=== PATIENT | male | born 1985 | race Caucasian/White ===

== ENCOUNTER 2023-11-29 18:41 | Observation (INO) | payer OTHER ==
--- NOTE | 2023-11-29 19:06 | ED ---
General Adult HPI - General Source: patient, family, RN notes reviewed <Malissa Rain - Last Filed: 11/29/23 19:04> <Don Acuña - Last Filed: 11/30/23 04:48> <Leonel Toro - Last Filed: 11/30/23 07:32> - General Stated complaint: headache weakness Time Seen by Provider: 11/29/23 19:04 - History of Present Illness Initial comments: Patient is a 37-year-old male presented to the ER with chief complaint of headache and weakness. Patient states for the past 2 to 3 days he has been having a headach and has just intensified. He also endorses nausea denies vomiting. Patient also states "he does not feel well". He states he feels extremely weak shaky and sweaty. Denies any neck pain, chest pain, shortness of breath. (Malissa Rain) 37-year-old female presenting to the ED with a chief complaint of headache. Patient states 4 days ago onset of headache. States that it is on the right side of his head radiates towards the middle. Patient also notes some associated nausea and vomiting with this intermittent blurred vision. No chest pain shortness of breath. No fever or chills. Patient has had no recent neck manipulations. Patient reports that this is "the worst headache of his life". No other complaints at this time. (Don Acuña) - Related Data Allergies Allergy/AdvReac Type Severity Reaction Status Date / Time Sulfa (Sulfonamide Allergy Rash/Hives Verified 11/29/23 19:34 Antibiotics) Review of Systems ROS Other: All systems not noted in ROS Statement are negative. <Malissa Rain - Last Filed: 11/29/23 19:04> ROS Other: All systems not noted in ROS Statement are negative. <Don Acuña - Last Filed: 11/30/23 04:48> ROS Other: All systems not noted in ROS Statement are negative. <Leonel Toro - Last Filed: 11/30/23 07:32> ROS Statement: Those systems with pertinent positive or pertinent negative responses have been documented in the HPI. General Exam <Malissa Rain - Last Filed: 11/29/23 19:04> General appearance: alert, in no apparent distress Eye exam: Present: normal appearance Neck exam: Present: normal inspection Respiratory exam: Present: normal lung sounds bilaterally Cardiovascular Exam: Present: regular rate, normal rhythm GI/Abdominal exam: Present: soft Extremities exam: Present: normal inspection Neurological exam: Present: alert, oriented X3, CN II-XII intact, other ([id number], [id number]-[id number], rapid alternating hand movements intact.) Skin exam: Present: warm, dry <Don Acuña - Last Filed: 11/30/23 04:48> - General Exam Comments Initial Comments: Visual Physical Exam Vital signs reviewed General: Well-appearing, nontoxic, no acute distress. Head: Normocephalic, atraumatic Eyes: PERRLA, EOMI ENT: Airway patent Chest: Nonlabored breathing Skin: No visual rash, normal skin tone, diaphoretic and mildly pale Neuro: Alert and oriented 3 Musculoskeletal: No gross abnormalities (Malissa Rain) Course <Don Acuña - Last Filed: 11/30/23 04:48> Vital Signs 11/29/23 11/29/23 11/30/23 19:29 20:56 00:37 Temperature 98.4 F 99.0 F Pulse Rate 82 96 76 Respiratory 18 16 16 Rate Blood Pressure 185/98 181/108 149/82 O2 Sat by Pulse 99 97 97 Oximetry 11/30/23 11/30/23 03:04 06:12 Temperature Pulse Rate 95 95 Respiratory 16 20 Rate Blood Pressure 174/100 159/84 O2 Sat by Pulse 96 97 Oximetry - Reevaluation(s) Reevaluation #1: At this time patient is still complaining of significant pain after multiple analgesics. Therefore CTA head and neck ordered. 11/30/23 02:28 (Don Acuña) Medical Decision Making <Malissa Rain - Last Filed: 11/29/23 19:04> - Lab Data Result diagrams: 11/29/23 20:59 11/29/23 20:59 <Don Acuña - Last Filed: 11/30/23 04:48> - Lab Data Result diagrams: 11/29/23 20:59 11/29/23 20:59 <Leonel Toro - Last Filed: 11/30/23 07:32> - Medical Decision Making I performed the quick note portion of this chart. Electronically signed by Malissa Rain PA-C (Malissa Rain) Was pt. sent in by a medical professional or institution ([employer] [facility], [employer], urgent care, hospital, or half-way...) When possible be specific @ -No Did you speak to anyone other than the patient for history (EMS, parent, family, police, friend...)? What history was obtained from this source @ -No Did you review nursing and triage notes (agree or disagree)? Why? @ -I reviewed and agree with nursing and triage notes Were old charts reviewed (outside hosp., previous admission, EMS record, old EKG, old radiological studies, urgent care reports/EKG's, half-way records)? Report findings @ -No old charts were reviewed Differential Diagnosis (chest pain, altered mental status, abdominal pain women, abdominal pain men, vaginal bleeding, weakness, fever, dyspnea, syncope, headache, dizziness, GI bleed, back pain, seizure, CVA, palpatations, mental health, musculoskeletal)? @ -Differential Headache: Migraine, tension, cluster, carbon monoxide, central venous thrombosis, pension karma temporal arteritis, acute closure glaucoma, intercranial hemorrhage, mastoiditis, sinusitis, head injury, this is not meant to be an all-inclusive list. EKG interpreted by me (3pts min.). @ -EKG interpreted by me shows a normal sinus rhythm at [address] and T wave changes. MI 130, QRS 92, QT/QTc 396/411. X-rays interpreted by me (1pt min.). @ -None done CT interpreted by me (1pt min.). @ -CT brain interpreted by me showing no evidence of acute finding. U/S interpreted by me (1pt. min.). @ -None done What testing was considered but not performed or refused? (CT, X-rays, U/S, labs )? Why? @ -None What meds were considered but not given or refused? Why? @ -None Did you discuss the management of the patient with other professionals (professionals i.e. [employer] [facility], [employer], lab, RT, psych nurse, group social worker, vehicle safety inspector, teacher, founder and chief executive officer, community case manager)? Give summary @ -No Was smoking cessation discussed for >3mins.? @ -No Was critical care preformed (if so, how long)? @ -No Were there social determinants of health that impacted care today? How? (Homelessness, low income, unemployed, alcoholism, drug addiction, transportation, low edu. Level, literacy, decrease access to med. care, care home, rehab)? @ -No Was there de-escalation of care discussed even if they declined (Discuss DNR or withdrawal of care, Hospice)? DNR status @ -No What co-morbidities impacted this encounter? (DM, HTN, Smoking, COPD, CAD, Cancer, CVA, ARF, Chemo, Hep., AIDS, mental health diagnosis, sleep apnea, morbid obesity)? @ -None Was patient admitted / discharged? Hospital course, mention meds given and route, prescriptions, significant lab abnormalities, going to OR and other pertinent info. @ -Pending 37-year-old male presenting to the ED with a history of headache for the past few days. Patient reports no history of headaches. Therefore patient had complete workup including laboratory studies and CT brain which were largely unremarkable. After the aforementioned studies and multiple doses of analgesia patient was still complaining of intractable headache therefore CT angio head and neck was performed and at this time study is pending. Case signed out to my attending physician Dr. Toro for further disposition. (Don Acuña) Patient signed out to me pending results of workup. Briefly, presents with intr actable headache for the last few days. Is received multiple doses of pain medications here. Blood work is unremarkable. ESR still pending. CT imaging so far has been unremarkable. I did interpret the CT angiogram which was pending and revealed no obvious acute intracranial process. On reevaluation, vital signs are improved with blood pressure now systolics in the 150s however patient is still complaining of headache. I did offer observation admission with neurology evaluation he was in agreement this plan. He has no other symptoms at this time other than the headache. States he does get some mild relief but no significant relief. I spoke with the admitting team, JANE Akbar of [facility] who accepted the admission. Diagnosis/symptom? @ -Intractable headache Acute, or Chronic, or Acute on Chronic? @ -Acute Uncomplicated (without systemic symptoms) or Complicated (systemic symptoms)? @ -Complicated Side effects of treatment? @ -None Exacerbation, Progression, or Severe Exacerbation] @ -No Poses a threat to life or bodily function? @ -Yes (Leonel Toro) - Lab Data Lab Results 11/29/23 11/29/23 11/29/23 Range/Units 20:59 20:59 20:59 WBC 10.2 (3.8-10.6) k/uL RBC 5.00 (4.30-5.90) m/uL Hgb 16.2 (13.0-17.5) gm/dL Hct 47.7 (39.0-53.0) % MCV 95.3 (80.0-100.0) fL MCH 32.3 (25.0-35.0) pg MCHC 33.9 (31.0-37.0) g/dL RDW 12.5 (11.5-15.5) % Plt Count 283 (150-450) k/uL MPV 7.7 Sodium 140 (137-145) mmol/L Potassium 4.0 (3.5-5.1) mmol/L Chloride 105 (98-107) mmol/L Carbon Dioxide 27 (22-30) mmol/L Anion Gap 8 mmol/L BUN 16 (9-20) mg/dL Creatinine 0.87 (0.66-1.25) mg/dL Est GFR (CKD-EPI)AfAm >90 (>60 ml/min/1.73 sqM) Est GFR (CKD-EPI)NonAf >90 (>60 ml/min/1.73 sqM) Glucose 81 (74-99) mg/dL Calcium 10.3 H (8.4-10.2) mg/dL Total Bilirubin 0.7 (0.2-1.3) mg/dL AST 31 (17-59) U/L ALT 50 H (4-49) U/L Alkaline Phosphatase 83 (38-126) U/L C-Reactive Protein <0.5 (<1.0) mg/dL Total Protein 8.2 (6.3-8.2) g/dL Albumin 5.2 H (3.5-5.0) g/dL Influenza Type A (PCR) Not Detected (Not Detectd) Influenza Type B (PCR) Not Detected (Not Detectd) RSV (PCR) Not Detected (Not Detectd) SARS-CoV-2 (PCR) Not Detected (Not Detectd) Disposition <Stariha,Malissa - Last Filed: 11/29/23 19:04> Is patient prescribed a controlled substance at d/c from ED?: No <Don Acuña - Last Filed: 11/30/23 04:48> Time of Disposition: 07:00 <Leonel Toro - Last Filed: 11/30/23 07:32> Clinical Impression: Headache Disposition: ADMITTED IP TO THIS HOSP Condition: Stable Additional Instructions: Please return to the Emergency Department if symptoms worsen or any other co ncerns. Please follow-up with your PCP. Referrals: None,Stated [Primary Care Provider] - 1-2 days
--- NOTE | 2023-11-29 20:57 | CT ---
EXAMINATION TYPE: CT brain wo con CT DLP: 1136.4 mGycm, Automated exposure control for dose reduction was used. DATE OF EXAM: 11/29/2023 8:20 PM COMPARISON: None. CLINICAL INDICATION:Male, 37 years old with history of headache, headache x 3 days. TECHNIQUE: Brain: Axial CT images of the brain were obtained with coronal and sagittal reformats created and rev iewed. Contrast used: None. Oral contrast used: None. FINDINGS: Brain: Extra-axial spaces: No abnormal extra-axial fluid collections. Ventricular system: Within normal limits Cerebral parenchyma: No acute intraparenchymal hemorrhage or mass effect. The bautista-white junction is well differentiated. Cerebellum: Unremarkable. Mass effect: No evidence of midline shift. Intracranial vasculature: unremarkable Soft tissues: Normal. Calvarium/osseous structures: No depressed skull fracture. Paranasal sinuses and mastoid air cells: Mild scattered paranasal sinus disease. Visualized orbits: Orbital contents are intact. IMPRESSION: No acute intracranial process.
[2023-11-29 22:07] LABS: HCT 47.7 % (39.0-53.0); HGB 16.2 gm/dL (13.0-17.5); MCH 32.3 pg (25.0-35.0); MCHC 33.9 g/dL (31.0-37.0); MCV 95.3 fL (80.0-100.0); Mean Platelet Volume 7.7; Platelet Count 283 k/uL (150-450); RDW 12.5 % (11.5-15.5); WBC 10.2 k/uL (3.8-10.6)
[2023-11-29 23:50] LABS: ALT 50 U/L (4-49); AST 31 U/L (17-59); African American GFR (CKD) >90 (>60 ml/min/1.73 sqM); Albumin 5.2 g/dL (3.5-5.0); Alkaline Phosphatase 83 U/L (38-126); Anion Gap 8 mmol/L; Blood Urea Nitrogen 16 mg/dL (9-20); Calcium 10.3 mg/dL (8.4-10.2); Carbon Dioxide 27 mmol/L (22-30); Chloride 105 mmol/L (98-107); Glucose 81 mg/dL (74-99); Non-African American GFR(CKD) >90 (>60 ml/min/1.73 sqM); Sodium 140 mmol/L (137-145); Total Bilirubin 0.7 mg/dL (0.2-1.3); Total Protein 8.2 g/dL (6.3-8.2)
[2023-11-30 00:04] LABS: C Reactive Protein <0.5 mg/dL (<1.0)
[2023-11-30] MEDS: diphenhydrAMINE 50 MG/ML 1 ML VIAL IVP STA (00:16)
[2023-11-30] MEDS: KETOROLAC 15 MG/ML 1 ML VIAL IVP STA (00:16)
[2023-11-30] MEDS: ONDANSETRON 4 MG/2 ML VIAL IVP STA (00:17)
[2023-11-30] MEDS: SODIUM CHLORIDE 0.9% 1,000 ML IV STA (00:18)
[2023-11-30] MEDS: MORPHINE SULFATE 4 MG/ML SYRINGE IVP STA (01:14)
[2023-11-30] MEDS: DEXAMETHASONE SOD PHOSPHATE 10 MG/ML 1 ML VIAL IVP STA (01:46)
[2023-11-30] MEDS: MAGNESIUM SULFATE-D5W PMX 1 GM in DEXTROSE/WATER 1 100ML.BAG IVPB ONE (01:47)
[2023-11-30] MEDS: HYDROmorphone 1 MG/ML 1 ML SYRINGE IVP STA ×2 (02:30→07:30)
[2023-11-30] MEDS: SODIUM CHLORIDE 0.9% 1,000 ML IV ONE (02:41)
--- NOTE | 2023-11-30 05:26 | CT ---
EXAM: CT Angiography Head With Intravenous Contrast CLINICAL HISTORY: ITS.REASON CT Reason: HERNANDEZ TECHNIQUE: Axial computed tomographic angiography images of the head with intravenous contrast. CTDI is 22.35 mGy and DLP is 206.25 mGy-cm. This CT exam was performed using one or more of the following dose reduction techniques: automated exposure control, adjustment of the mA and/or kV according to patient size, and/or use of iterative reconstruction technique. MIP reconstructed images were created and reviewed. COMPARISON: No relevant prior studies available. FINDINGS: The dural venous sinuses are patent. Right internal carotid artery: No acute findings. Intracranial segment is patent with no significant stenosis. No aneurysm. Right anterior cerebral artery: Unremarkable. No occlusion or significant stenosis. No aneurysm. Right middle cerebral artery: Unremarkable. No occlusion or significant stenosis. No aneurysm. Right posterior cerebral artery: Unremarkable. No occlusion or significant stenosis. No aneurysm. Right vertebral artery: Hypoplastic. Left internal carotid artery: No acute findings. Intracranial segment is patent with no significant stenosis. No aneurysm. Left anterior cerebral artery: Unremarkable. No occlusion or significant stenosis. No aneurysm. Left middle cerebral artery: Unremarkable. No occlusion or significant stenosis. No aneurysm. Left posterior cerebral artery: Unremarkable. No occlusion or significant stenosis. No aneurysm. Left vertebral artery: Hypoplastic. Basilar artery: Hypoplastic. No occlusion or significant stenosis. No aneurysm. IMPRESSION: Normal head CTA. EXAM: CT Angiography Neck With Intravenous Contrast CLINICAL HISTORY: ITS.REASON CT Reason: HERNANDEZ TECHNIQUE: Routine carotid CT angiography protocol was performed with intravenous contrast. NASCET criteria using the distal ICAs for comparison were used for evaluation of stenoses. CTDI is 22.35 mGy and DLP is 206.25 mGy-cm. This CT exam was performed using one or more of the following dose reduction techniques: automated exposure control, adjustment of the mA and/or kV according to patient size, and/or use of iterative reconstruction technique. MIP reconstructed images were created and reviewed. COMPARISON: None. FINDINGS: VASCULATURE: Right common carotid artery: Unremarkable. No occlusion or significant stenosis. No dissection. Right internal carotid artery: Unremarkable. Extracranial segment is patent with no occlusion or significant stenosis. No dissection. Right external carotid artery: Unremarkable. No occlusion. Right vertebral artery: Unremarkable. No occlusion or significant stenosis. No dissection. Left common carotid artery: Unremarkable. No occlusion or significant stenosis. No dissection. Left internal carotid artery: Unremarkable. Extracranial segment is patent with no occlusion or significant stenosis. No dissection. Left external carotid artery: Unremarkable. No occlusion. Left vertebral artery: Unremarkable. No occlusion or significant stenosis. No dissection. NECK: Bones/joints: Unremarkable. No acute fracture. Soft tissues: Prominent cervical lymph nodes. Lung apices: Clear. CAROTID STENOSIS REFERENCE USING NASCET CRITERIA: % ICA stenosis = (1 - narrowest ICA diameter/diameter of distal cervical ICA) x 100. Mild - <50% stenosis. Moderate - 50-69% stenosis. Severe - 70-94% stenosis. Near occlusion - 95-99% stenosis. Occluded - 100% stenosis. IMPRESSION: Negative CTA neck.
[2023-11-30] MEDS ORDERED: NALOXONE 0.4 MG/ML 1 ML VIAL IV PRN (07:04)
[2023-11-30] MEDS: ONDANSETRON 4 MG/2 ML VIAL IVP PRN (07:29)
[2023-11-30] MEDS: SODIUM CHLORIDE 0.9% 1,000 ML IV SCH (07:32)
[2023-11-30] MEDS: KETOROLAC 15 MG/ML 1 ML VIAL IVP PRN (09:17)
[2023-11-30 10:36] LABS: Erythrocyte Sedimentation Rate 17 mm/Hr (0-15)
[2023-11-30] MEDS: HYDROmorphone 1 MG/ML 1 ML SYRINGE IVP PRN (10:58)
[2023-11-30] MEDS: GABAPENTIN 100 MG CAP PO SCH (10:58)
[2023-11-30 11:58] VITALS: BP 164/93; PULSE 107; RESP 16; TEMP 95
--- NOTE | 2023-11-30 12:33 | P.HPIM ---
History of Present Illness Patient is a 37-year-old male came in with complaints of headache generalized weakness, mild photophobia, nausea. Patient symptoms has been going on for 2 days progressively worsening for 2 days patient denies any aura or any focal weakness. Patient denies any shortness of breath patient headache starts in the right occipital area radiating across the right temporal to the frontal area. Patient headache is better but still having some headache. Patient does have a history of bipolar disorder patient takes Lamictal. Patient does vape (nicotine). Patient had a CT angio of the head and CT of the head which did not show any intracranial hemorrhage or sinus venous thrombosis or any other significant abnormality. He is receiving Toradol here Dilaudid was discontinued. Patient was started on gabapentin by neurology neurology evaluate the patient. They are recommending outpatient MRI and EEG. REVIEW OF SYSTEMS: CONSTITUTIONAL: No fever, no malaise, no fatigue. HEENT: No recent visual problems or hearing problems. Denied any sore throat. CARDIOVASCULAR: No chest pain, orthopnea, PND, no palpitations, no syncope. PULMONARY: No shortness of breath, no cough, no hemoptysis. GASTROINTESTINAL: No diarrhea,no abdominal pain. NEUROLOGICAL: As mentioned in HPI HEMATOLOGICAL: Denies any bleeding or petechiae. GENITOURINARY: Denies any burning micturition, frequency, or urgency. MUSCULOSKELETAL/RHEUMATOLOGICAL: Denies any joint pain, swelling, or any muscle pain. ENDOCRINE: Denies any polyuria or polydipsia. The rest of the 14-point review of systems is negative. PHYSICAL EXAMINATION: GENERAL: The patient is alert and oriented x3, not in any acute distress. Well developed, well nourished. HEENT: Pupils are round and equally reacting to light. EOMI. No scleral icterus. No conjunctival pallor. Normocephalic, atraumatic. No pharyngeal erythema. No thyromegaly. CARDIOVASCULAR: S1 and S2 present. No murmurs, rubs, or gallops. PULMONARY: Chest is clear to auscultation, no wheezing or crackles. ABDOMEN: Soft, nontender, nondistended, normoactive bowel sounds. No palpable organomegaly. MUSCULOSKELETAL: No joint swelling or deformity. EXTREMITIES: No cyanosis, clubbing, or pedal edema. NEUROLOGICAL: Gross neurological examination did not reveal any focal deficits. SKIN: No rashes. Assessment and plan Acute migraine: Patient has been never diagnosed with migraine in the past symptomatology is consistent with migraine headache patient will be discharged on gabapentin follow-up with neurology as an outpatient as well as PCP as an outpatient. -Occasional elevation of blood pressure secondary to headache patient was advised to check the blood pressure at home follow-up with PCP with blood pressure readings. -ADHD -PTSD Patient will be discharged with prescription of gabapentin, as needed naproxen and Pepcid. Patient was referred to neurology and PCP 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 Date of last positivie culture/infection: 2022 MDRO Source:: stool Past Surgical History: Adenoidectomy, Hernia Repair, Tonsillectomy Additional Past Surgical History / Comment(s): ethmoid sinusis removed 2014 Past Anesthesia/Blood Transfusion Reactions: No Reported Reaction Past Psychological History: ADD/ADHD, Anxiety, Depression, PTSD Smoking Status: Vaper Past Alcohol Use History: Rare Past Drug Use History: None Reported Medications and Allergies Home Medications Medication Instructions Recorded Confirmed Type ALPRAZolam [Xanax] 0.5 mg PO DAILY PRN 11/30/23 11/30/23 History Dextroamphetamine/Amphetamine 15 mg PO DAILY 11/30/23 11/30/23 History [Adderall Xr 15 mg Capsule] FLUoxetine HCL [PROzac] 20 mg PO DAILY 11/30/23 11/30/23 History Famotidine [Pepcid] 20 mg PO BID #30 tablet 11/30/23 Rx Naproxen [Naprosyn] 250 mg PO QID PRN #30 tab 11/30/23 Rx Temazepam [Restoril] 30 mg PO HS 11/30/23 11/30/23 History lamoTRIgine [LaMICtal] 50 mg PO DAILY 11/30/23 11/30/23 History valACYclovir HCL [Valtrex] 500 mg PO DAILY 11/30/23 11/30/23 History Allergies Allergy/AdvReac Type Severity Reaction Status Date / Time Sulfa (Sulfonamide Allergy Rash/Hives Verified 11/30/23 11:41 Antibiotics) Physical Exam Vitals: Vital Signs Temp Pulse Pulse Resp BP BP Pulse Ox 11/30/23 09:15 95.0 F L 107 H 16 164/93 99 11/30/23 08:38 80 18 148/78 98 11/30/23 06:12 95 20 159/84 97 11/30/23 03:04 95 16 174/100 96 11/30/23 00:37 76 16 149/82 97 11/29/23 20:56 99.0 F 96 16 181/108 97 11/29/23 19:29 98.4 F 82 18 185/98 99 Intake and Output 11/29/23 11/30/23 11/30/23 22:59 06:59 14:59 Intake Total 240 Balance 240 Intake: Oral 240 Other: Voiding Method Toilet Weight 63.503 kg 63.503 kg Results CBC & Chem 7: 11/29/23 20:59 11/29/23 20:59 Labs: Abnormal Lab Results - Last 24 Hours (Table) 11/29/23 11/29/23 Range/Units 20:59 20:59 ESR 17 H (0-15) mm/Hr Calcium 10.3 H (8.4-10.2) mg/dL ALT 50 H (4-49) U/L Albumin 5.2 H (3.5-5.0) g/dL Thrombosis Risk Factor Assmnt - Choose All That Apply Any of the Below Risk Factors Present?: No Other Risk Factors: No Thrombosis Risk Factor Assessment Level: Very Low Risk
--- NOTE | 2023-11-30 12:33 | P.DS ---
Providers Date of admission: 11/30/23 07:05 Attending physician: Albert Andrews Consults: 11/30/23 07:04 Consult Physician Routine Consulting Provider: Ric Moore Consult Reason/Comments: migraine Do you want consulting provider notified?: Yes Primary care physician: Stated None Hospital Course: Patient is a 37-year-old male came in with complaints of headache generalized weakness, mild photophobia, nausea. Patient symptoms has been going on for 2 days progressively worsening for 2 days patient denies any aura or any focal weakness. Patient denies any shortness of breath patient headache starts in the right occipital area radiating across the right temporal to the frontal area. Patient headache is better but still having some headache. Patient does have a history of bipolar disorder patient takes Lamictal. Patient does vape (nicotine). Patient had a CT angio of the head and CT of the head which did not show any intracranial hemorrhage or sinus venous thrombosis or any other significant abnormality. He is receiving Toradol here Dilaudid was discontinued. Patient was started on gabapentin by neurology neurology evaluate the patient. They are recommending outpatient MRI and EEG. REVIEW OF SYSTEMS: CONSTITUTIONAL: No fever, no malaise, no fatigue. HEENT: No recent visual problems or hearing problems. Denied any sore throat. CARDIOVASCULAR: No chest pain, orthopnea, PND, no palpitations, no syncope. PULMONARY: No shortness of breath, no cough, no hemoptysis. GASTROINTESTINAL: No diarrhea,no abdominal pain. NEUROLOGICAL: As mentioned in HPI HEMATOLOGICAL: Denies any bleeding or petechiae. GENITOURINARY: Denies any burning micturition, frequency, or urgency. MUSCULOSKELETAL/RHEUMATOLOGICAL: Denies any joint pain, swelling, or any muscle pain. ENDOCRINE: Denies any polyuria or polydipsia. The rest of the 14-point review of systems is negative. PHYSICAL EXAMINATION: GENERAL: The patient is alert and oriented x3, not in any acute distress. Well developed, well nourished. HEENT: Pupils are round and equally reacting to light. EOMI. No scleral icterus. No conjunctival pallor. Normocephalic, atraumatic. No pharyngeal erythema. No thyromegaly. CARDIOVASCULAR: S1 and S2 present. No murmurs, rubs, or gallops. PULMONARY: Chest is clear to auscultation, no wheezing or crackles. ABDOMEN: Soft, nontender, nondistended, normoactive bowel sounds. No palpable organomegaly. MUSCULOSKELETAL: No joint swelling or deformity. EXTREMITIES: No cyanosis, clubbing, or pedal edema. NEUROLOGICAL: Gross neurological examination did not reveal any focal deficits. SKIN: No rashes. Assessment and plan Acute migraine: Patient has been never diagnosed with migraine in the past symptomatology is consistent with migraine headache patient will be discharged on gabapentin follow-up with neurology as an outpatient as well as PCP as an outpatient. -Occasional elevation of blood pressure secondary to headache patient was advised to check the blood pressure at home follow-up with PCP with blood pressure readings. -ADHD -PTSD Patient will be discharged with prescription of gabapentin, as needed naproxen and Pepcid. Patient was referred to neurology and PCP Patient Condition at Discharge: Stable Plan - Discharge Summary Discharge Rx Participant: No New Discharge Prescriptions: New Naproxen [Naprosyn] 250 mg PO QID PRN #30 tab PRN Reason: Headache Famotidine [Pepcid] 20 mg PO BID #30 tablet Continue valACYclovir HCL [Valtrex] 500 mg PO DAILY lamoTRIgine [LaMICtal] 50 mg PO DAILY Temazepam [Restoril] 30 mg PO HS FLUoxetine HCL [PROzac] 20 mg PO DAILY Dextroamphetamine/Amphetamine [Adderall Xr 15 mg Capsule] 15 mg PO DAILY ALPRAZolam [Xanax] 0.5 mg PO DAILY PRN PRN Reason: Anxiety Discharge Medication List ALPRAZolam [Xanax] 0.5 mg PO DAILY PRN 11/30/23 [History] Dextroamphetamine/Amphetamine [Adderall Xr 15 mg Capsule] 15 mg PO DAILY 11/30/23 [History] FLUoxetine HCL [PROzac] 20 mg PO DAILY 11/30/23 [History] Famotidine [Pepcid] 20 mg PO BID #30 tablet 11/30/23 [Rx] Naproxen [Naprosyn] 250 mg PO QID PRN #30 tab 11/30/23 [Rx] Temazepam [Restoril] 30 mg PO HS 11/30/23 [History] lamoTRIgine [LaMICtal] 50 mg PO DAILY 11/30/23 [History] valACYclovir HCL [Valtrex] 500 mg PO DAILY 11/30/23 [History] Follow up Appointment(s)/Referral(s): Bety Gupta MD [STAFF PHYSICIAN] - 1 Week Arnulfo Reddy DO [STAFF PHYSICIAN] - 1 Week Activity/Diet/Wound Care/Special Instructions: Please return to the Emergency Department if symptoms worsen or any other concerns. Please follow-up with your PCP.
--- NOTE | 2023-11-30 12:43 | P.CNNES ---
History of Present Illness Consult date: 11/30/23 Requesting physician: Leonel Toro Reason for Consult: migraine History of Present Illness: This is a 37-year-old gentleman who presented emergency department because of headache. Patient states that he has been having headache since Saturday and he feels over the right occipital region rating over to the bilateral frontal region. He feels that the pulsating, sharp stabbing pain. It's constant, he feels nauseous denies any vomiting. He has some photophobia but denies any photophobia. Denies any alleviation or any aggravation. He stated he had a recent upper respiratory tract infection and was on prednisone this past . Patient stated that he tried ice packs, Excedrin, pseudoephedrine, Tylenol but did not alleviate the pain. The headache is 9/10 that he feels. Feels he is weak mostly in the legs. Denies any falls or head trauma. Doesn't have history of migraines. He does have a Pap. He rarely drink alcohol. Denies any illicit drug use. 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 He states she has history of ADHD, PTSD, anxiety and he follows up with psychiatry [facility] and patient is on Adderall and has a different medication that were switched from Effexor to fluoxetine but very low dose. He is also on Lamictal 50 mg daily for his mood. The his been feeling foggy. Per the patient's nurse, she stated that he states that his pain is severe but he does seems in severe pain. Some of the workup during his hospital visit consisted of: ESR 17 normal is up to 15. Otherwise white blood cell is normal to rest of that at chemistry panel is unremarkable Sodium is 140, glucose is 81, calcium 7.3, CRP is less than 0.5. Influenza A/B, RSV, SARS CoV2 PCR are not detected. CT of the head is reported as no acute intracranial process. I personally reviewed CT and agree with report. CT angiography of the head and neck is negative Review of Systems The positive and negative as per HPI. 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 Date of last positivie culture/infection: 2022 MDRO Source:: stool Past Surgical History: Adenoidectomy, Hernia Repair, Tonsillectomy Additional Past Surgical History / Comment(s): ethmoid sinusis removed 2014 Past Anesthesia/Blood Transfusion Reactions: No Reported Reaction Past Psychological History: ADD/ADHD, Anxiety, Depression, PTSD Smoking Status: Vaper Past Alcohol Use History: Rare Past Drug Use History: None Reported Medications and Allergies Home Medications Medication Instructions Recorded Confirmed Type ALPRAZolam [Xanax] 0.5 mg PO DAILY PRN 11/30/23 11/30/23 History Dextroamphetamine/Amphetamine 15 mg PO DAILY 11/30/23 11/30/23 History [Adderall Xr 15 mg Capsule] FLUoxetine HCL [PROzac] 20 mg PO DAILY 11/30/23 11/30/23 History Famotidine [Pepcid] 20 mg PO BID #30 tablet 11/30/23 Rx Gabapentin [Neurontin] 100 mg PO TID #90 cap 11/30/23 Rx Naproxen [Naprosyn] 250 mg PO QID PRN #30 tab 11/30/23 Rx Temazepam [Restoril] 30 mg PO HS 11/30/23 11/30/23 History lamoTRIgine [LaMICtal] 50 mg PO DAILY 11/30/23 11/30/23 History valACYclovir HCL [Valtrex] 500 mg PO DAILY 11/30/23 11/30/23 History Allergies Allergy/AdvReac Type Severity Reaction Status Date / Time Sulfa (Sulfonamide Allergy Rash/Hives Verified 11/30/23 11:41 Antibiotics) Physical Examination - Vital Signs Vital Signs: Vital Signs Temp Pulse Pulse Resp BP BP Pulse Ox 11/30/23 09:15 95.0 F L 107 H 16 164/93 99 11/30/23 08:38 80 18 148/78 98 11/30/23 06:12 95 20 159/84 97 11/30/23 03:04 95 16 174/100 96 11/30/23 00:37 76 16 149/82 97 11/29/23 20:56 99.0 F 96 16 181/108 97 11/29/23 19:29 98.4 F 82 18 185/98 99 Intake and Output 11/29/23 11/30/23 11/30/23 22:59 06:59 14:59 Intake Total 240 Balance 240 Intake: Oral 240 Other: Voiding Method Toilet Weight 63.503 kg 63.503 kg GENERAL: The patient is lying in bed and is not in acute distress. NEUROLOGICAL: Higher mental function: The patient is awake, alert, oriented to self, place and time. Patient is following commands. No aphasia and no neglect. Cranial nerves: The pupils are round, equal and reactive to light and accommodation. Visual landon are full to confrontation throughout. Extraocular movement is intact no nystagmus is noted. Facial sensation is normal to touch throughout. The facial strength is normal throughout. Hearing is normal bi laterally to hand rub. Tongue is midline and moved [id number] without any difficulty. No dysarthria is noted. Shoulder shrug is normal bilaterally. Motor: Gait is normal. The strength is 5 over 5 throughout. Normal tone and bulk. Cerebellum: Normal finger to nose heel to childs bilaterally. Sensation: Sensation is normal to touch throughout. Reflexes (right/left): 2+ throughout. Plantars are downgoing bilaterally. Results - Laboratory Findings CBC and BMP: 11/29/23 20:59 11/29/23 20:59 Abnormal Lab Findings: Abnormal Labs 11/29/23 02 20:59 20:59 ESR 17 H Calcium 10.3 H ALT 50 H Albumin 5.2 H Assessment and Plan Assessment: This is a 37-year-old gentle woman who presents because of the headache and f eels he is weak in the lowers. He states he had a recent upper respiratory tract infection. He states the headache is over the right occipital region and progressively worsening. Headache seems occipital neuralgia. Reported history of upper respiratory tract infection History of ADHD History of PTSD History of anxiety Vapes Plan: Upon examination the patient as well as obtaining the history he does not appear that he is in severe distress to me and the nurse. Patient received morphine, Toradol, Dilaudid, Benadryl, Decadron, Zofran by the ED team. I recommend waiting overuse of the opiates. I started the patient on gabapentin 100 mg 1 tablet 3 times a day. If still having pain can go up to 300mg TID. If it's ineffective consider occipital nerve block and neck could be done as an outpatient and for him to follow up with a neurologist as outpatient as well as a pain specialist. I ordered TSH, CK level, folate, vitamin B12 Patient was counseled on cessation of vaping. Defer the rest of the medical management to the primary team Otherwise no additional neurological workup is needed and patient to follow-up with a neurologist as an outpatient within 2 weeks. Plan discussed with the patient and his nurse. Thank you for the consultation. Time with Patient: Greater than 30
[2023-12-01 12:35] LABS: Creatine Kinase 116 U/L (35-257)
== END 2023-11-30 14:17 | disposition home or self-care (01) ==
LOC: EC 18:41 → 6NMEDSUR 11-30 07:05
PROVIDERS: ADMIT Hospitalist; ATTEND Hospitalist
DX: G43.909 Migraine, unspecified, not intractable, without status migrainosus (principal); R03.0 Elevated blood-pressure reading, without diagnosis of hypertension; F31.9 Bipolar disorder, unspecified; F90.9 Attention-deficit hyperactivity disorder, unspecified type; F43.10 Post-traumatic stress disorder, unspecified; F41.9 Anxiety disorder, unspecified; F17.290 Nicotine dependence, other tobacco product, uncomplicated; Z79.899 Other long term (current) drug therapy; Z88.2 Allergy status to sulfonamides; Z11.52 Encounter for screening for COVID-19; Z11.59 Encounter for screening for other viral diseases; Z87.09 Personal history of other diseases of the respiratory system
CPT/HCPCS: 96376 ×2; 96361; 96365; 96375; 99285; 36415; 93005; 80053; 85652; 84443; 82607; 82550; 82746; 85027; 86140; 87636; 70496; 70450; 70498; G0378; J2270; J1200; J1100; J2405; J1170; J3475; J1885; Q9967